=== PATIENT | male | born 1995 | race Caucasian/White ===

== ENCOUNTER 2023-03-07 14:26 | Emergency (ER) | payer SELFPAY ==
[2023-03-07 14:51] VITALS: BP 136/87; PULSE 79; TEMP 36.7; O2SAT 99; BMI 28.5
[2023-03-07 17:32] VITALS: BP 127/78; PULSE 57; TEMP 36.5; O2SAT 97
[2023-03-07 17:57] LABS: Basophils # 0.1 10^3/uL (0.0-0.1); Basophils % 0.6 %; Eosinophils # 0.4 10^3/uL (0.0-0.8); Eosinophils % 4.6 %; Hematocrit 42.9 % (42.0-52.0); Hemoglobin 14.8 g/dL (11.7-16.6); Lymphocytes # 2.7 10^3/uL (0.8-4.8); Lymphocytes % 29.7 %; Mean Corpuscular HGB Conc 34.5 g/dL (30.0-36.0); Mean Corpuscular Hemoglobin 30.7 pg (28.0-34.0); Mean Platelet Volume 10.3 fL (7.4-10.4); Neutrophils % 53.9 %; Nucleated Red Blood Cells % 0 %; Platelet Count 254 10^3/cmm (130-400); Red Blood Count 4.82 10^6/uL (4.1-5.3); Red Cell Distribution Width 11.8 % (12.1-15.1); White Blood Count 8.9 10^3/uL (4.0-10.0)
[2023-03-07 18:20] LABS: Anion Gap 15.8 (5-19); Blood Urea Nitrogen 14 mg/dL (6-20); Calcium 8.8 mg/dL (8.5-10.5); Carbon Dioxide 27 mmol/L (22-29); Chloride 99 mmol/L (98-107); Glomerular Filtration Rate 116.9 mL/min (90-130); Glucose 83 mg/dL (65-115); Osmolality Calculated 286 mOsm/kg (285-295); Potassium 3.8 mmol/L (3.5-5.1); Sodium 138 mmol/L (136-145)
--- NOTE | 2023-03-07 19:05 | W.ED.ANIMALB ---
HPI - Animal Bite General: Chief Complaint: Animal Bite Stated Complaint: spider bite on chest Time Seen by Provider: 03/07/23 19:03 History of Present Illness: 29-year-old male patient comes in today for concerns of spider bite to the chest wall. Patient reports being bit approximately 4 days ago by what he believes was a recluse spider. Since then patient had a erythematous rash develop over his body and lower legs. Patient started using Benadryl approximately 2 days ago with improvement of the rash starting today. Patient sought treatment due to the tenderness of the anterior chest wall where the spider bite was. Patient appears nontoxic. Patient is alert and oriented. Associated symptoms: Reports chills and fever(s); Deny headache(s) Review of Systems Const: Reports: fever(s), chills and body aches Eyes: Denies: change in vision ENMT: Denies: throat pain Card: Denies: chest pain Resp: Denies: dyspnea GI: Denies: nausea or vomiting : Denies: difficulty urinating Skin/Breast: Reports: erythema Neuro: Denies: headache(s) Physical Exam Const: COMMON NORMALS: alert HENMT: COMMON NORMALS: normocephalic HEAD & SCALP: normocephalic Neck/C-Spine: COMMON NORMALS: full ROM Chest: CHEST: Yes tenderness (Punctate lesion surrounded by erythema approximately 20 cm) Resp: COMMON NORMALS: normal respiratory effort Cardio: COMMON NORMALS: regular rate and regular rhythm RATE: regular rate RHYTHM: regular rhythm GI: COMMON NORMALS: non-tender Extremity: COMMON NORMALS: normal to inspection Neuro: SENSORIUM/ORIENTATION: Yes alert Skin: LESIONS: other (Punctate lesion to the left anterior chest surrounded by erythema) RASHES: rashes noted (Erythema to the abdomen and chest) Course Vital Signs: Vital signs: Vital Signs Temperature 97.7 F 03/07/23 17:32 Pulse Rate 57 L 03/07/23 17:32 Blood Pressure 127/78 03/07/23 17:32 Pulse Oximetry 97 03/07/23 17:32 Oxygen Delivery Me thod Room Air 03/07/23 17:32 MDM - Animal Bite Medical Decision Making Patient comes in for spider bite. On exam we note a punctate lesion to the left chest wall with approximately 20 cm of erythema around it. Patient also has an area of induration approximately 2 cm around the punctate lesion. No fluctuance is noted to the area. Patient also has a light red rash to the abdomen. No other rashes noted on the body. Differential diagnosis includes but not limited to folliculitis, cellulitis, local reaction to insect bite. Patient describes a recluse spider bite. I believe patient is having a reaction to the recluse spider bite. Laboratory values were unremarkable. Recommend mupirocin ointment and triamcinolone cream. Patient was also given some dexamethasone and a gram of Rocephin for secondary coverage. Reassured patient that most often these resolve without any significant abnormalities or sequela. Patient was recommended to follow-up with primary care in 3 to 4 days. Patient does not have a primary care provider we will go ahead and have case management assist with this follow-up appointment. Lab Data 03/07/23 17:20 03/07/23 17:20 Laboratory Results WBC 8.9 10^3/uL (4.0-10.0) 03/07/23 17:20 RBC 4.82 10^6/uL (4.1-5.3) 03/07/23 17:20 Hgb 14.8 g/dL (11.7-16.6) 03/07/23 17:20 Hct 42.9 % (42.0-52.0) 03/07/23 17:20 MCV 89.0 fl (80-94) 03/07/23 17:20 MCH 30.7 pg (28.0-34.0) 03/07/23 17:20 MCHC 34.5 g/dL (30.0-36.0) 03/07/23 17:20 RDW 11.8 % (12.1-15.1) L 03/07/23 17:20 Plt Count 254 10^3/cmm (130-400) 03/07/23 17:20 MPV 10.3 fL (7.4-10.4) 03/07/23 17:20 Neut % (Auto) 53.9 % 03/07/23 17:20 Lymph % (Auto) 29.7 % 03/07/23 17:20 [place] % (Auto) 11.0 % 03/07/23 17:20 Eos % (Auto) 4.6 % 03/07/23 17:20 Baso % (Auto) 0.6 % 03/07/23 17:20 Neut # (Auto) 4.80 10^3/uL (1.8-7.7) 03/07/23 17:20 Lymph # (Auto) 2.7 10^3/uL (0.8-4.8) 03/07/23 17:20 [place] # (Auto) 1.0 10^3/uL (0.2-0.9) H 03/07/23 17:20 Eos # (Auto) 0.4 10^3/uL (0.0-0.8) 03/07/23 17:20 Baso # (Auto) 0.1 10^3/uL (0.0-0.1) 03/07/23 17:20 Nucleated RBC % (auto) 0 % 03/07/23 17:20 Nucleated RBCs # 0.0 /100WBC 03/07/23 17:20 Sodium 138 mmol/L (136-145) 03/07/23 17:20 Potassium 3.8 mmol/L (3.5-5.1) 03/07/23 17:20 Chloride 99 mmol/L (98-107) 03/07/23 17:20 Carbon Dioxide 27 mmol/L (22-29) 03/07/23 17:20 Anion Gap 15.8 (5-19) 03/07/23 17:20 BUN 14 mg/dL (6-20) 03/07/23 17:20 Creatinine 0.8 mg/dL (0.7-1.2) 03/07/23 17:20 GFR Calculation 116.9 mL/min (90-130) 03/07/23 17:20 Glucose 83 mg/dL (65-115) 03/07/23 17:20 Calculated Osmolality 286 mOsm/kg (285-295) 03/07/23 17:20 Calcium 8.8 mg/dL (8.5-10.5) 03/07/23 17:20 Discharge Plan Discharge Patient Disposition: Home Clinical Impression: Brown recluse spider bite Qualifiers: Encounter type: initial encounter Injury intent: accidental or unintentional Qualified Code(s): T63.331A - Toxic effect of venom of brown recluse spider, accidental (unintentional), initial encounter Condition: Stable Prescriptions: New triamcinolone acetonide 0.1 % cream 1 applic topical BID Qty: 30 0RF Discharge Orders: Discharge ED (Routine); Ordered 03/07/23 Ordered By: Stepan Reyes Discharge Diet: Usual diet Discharge Activity: Increase activity as tolerated Patient Instructions: Brown Recluse Spider Bite (ED) Activity Restrictions/Additional Instructions: Use mupirocin ointment twice a day to insect by until healed. Use triamcinolone cream 2 times a day alternating with the mupirocin until wound is healed. Use acetaminophen ibuprofen for pain. Use Benadryl as needed for itching and rash. Follow-up with primary care in 3 to 5 days for recheck. Return to ED for new concerns or inability to follow-up. Coding Level of Care Code ED Supervisor Word Processing for Jake Funes
[2023-03-07] MEDS: cefTRIAXone 1,000 MG in water for injection-sterile 2.1 ML 1 MG IM (19:23)
[2023-03-07] MEDS: dexamethasone 10 mg/mL INJ IM (19:23)
[2023-03-07] MEDS: mupirocin oint 22 gm 1 APPLIC TOPICAL (19:25)
[2023-03-07] MEDS: triamcinolone 0.1% cream 15 gm 1 APPLIC TOPICAL (19:42)
--- NOTE | 2023-03-08 11:21 | DCPLANNER ---
manager of pharmacy had message to speak with patient about getting established with a primary care physician - corrections caseworker was unable to speak with patient at this time.
== END 2023-03-07 20:14 | disposition home or self-care (01) ==
PROVIDERS: Emergency Medicine; Emergency Provider Nurse Practitioner Family
DX: T63.331A Toxic effect of venom of brown recluse spider, accidental (unintentional), initial encounter (principal)
CPT/HCPCS: 36415; 80048; 85025; 96372; 99284; J0696; J1100

== ENCOUNTER 2023-10-05 22:03 | Emergency (ER) | payer OTHER, SELFPAY ==
[2023-10-05 22:25] VITALS: BP 141/72; PULSE 75; RESP 16; TEMP 36.7; O2SAT 96; BMI 26.9
--- NOTE | 2023-10-05 22:27 | ED_ITS ---
HPI - Skin/Abscess/Foreign Bdy General: Chief complaint: Skin/Abscess/Foreign Body Stated complaint: chemical burn on foot Time Seen by Provider: 10/05/23 22:09 History of Present Illness: 27-year-old male patient was exposed to some floor adhesive last night and since then has developed some blistering to his feet complaining of itching and discomfort. Tonight patient has widespread erythematous rash. Patient appears nontoxic. Patient appears in no pain. Patient reports itching and burning. Review of Systems General: Reports: 10 or more systems reviewed and unremarkable except in HPI and below Skin/Breast: Reports: rash, pruritus, erythema and new lesions Physical Exam Const: COMMON NORMALS: alert HENMT: COMMON NORMALS: normocephalic HEAD & SCALP: normocephalic Neck/C-Spine: COMMON NORMALS: full ROM Resp: COMMON NORMALS: normal respiratory effort and clear to auscultation bilaterally AUSCULTATION: clear to auscultation bilaterally Cardio: COMMON NORMALS: regular rate and regular rhythm RATE: regular rate RHYTHM: regular rhythm Back/Pelvis: COMMON NORMALS: thoracic and lumbar spine normal to inspection Extremity: NARRATIVE EXTREMITY EXAM: Erythematous rash to the forearms and lower extremities. Blistering noted to the dorsal right foot. Neuro: SENSORIUM/ORIENTATION: Yes alert Skin: RASHES: rashes noted (Erythematous) Course Vital Signs: Vital signs: Vital Signs Temperature 98.1 F 10/05/23 22:25 Pulse Rate 75 10/05/23 22:25 Respiratory Rate 16 10/05/23 22:25 Blood Pressure 141/72 10/05/23 22:25 Pulse Oximetry 96 10/05/23 22:25 Oxygen Delivery Me thod Room Air 10/05/23 22:25 MDM - Skin/Abscess/Foreign Bdy Medicial Decision Making Patient came in today for complaints of widespread erythematous rash and blistering to his dorsal right foot. Patient reports exposure to a maria isabel adhesive that spilled into his shoe last night. Patient reports that he had up similar incident a week or 2 ago to his right forearm. On exam we note erythematous rash. We also noted some blistering to the dorsal right foot. Vital signs are normal. Differential diagnosis includes allergic reaction, contact dermatitis, chemical burn. Reviewed adhesive with poison control who recommended Aquaphor for the skin irritation. I believe patient probably has had a secondary allergic reaction versus eczema response to the exposure to the chemical. Patient will be given steroids and antihistamine for his discomfort. Patient was recommended to follow-up as needed. Return to ED for new concerns. XR interpretation done by ED provider, pending radiology final review Discharge Plan Discharge Patient Disposition: Home Clinical Impression: Contact dermatitis due to adhesives Qualifiers: Contact dermatitis type: allergic Qualified Code(s): L23.1 - Allergic contact dermatitis due to adhesives Condition: Stable Prescriptions: New triamcinolone acetonide 0.1 % cream 1 applic topical TID Qty: 80 1RF hydroxyzine HCl 25 mg tablet 25 mg PO Q6H PRN (Reason: itching and rash) Qty: 40 0RF No Action triamcinolone acetonide 0.1 % cream 1 applic topical BID Qty: 30 0RF Discharge Orders: Discharge ED (Routine); Ordered 10/05/23 Ordered By: Stepan Reyes Discharge Diet: Usual diet Discharge Activity: Increase activity as tolerated Patient Instructions: Contact Dermatitis (ED) Activity Restrictions/Additional Instructions: Home and rest. Drink plenty of water. Use triamcinolone cream 3 times a day to rash until clear. Use hydroxyzine 25 mg 1 every 6 hours as needed for itching and rash. Hydroxyzine may make you sleepy. Follow-up with primary care. Return to ER for new concerns. Stand Alone Forms: Work/School Release Coding Level of Care Code ED Bilingual Inside Sales Representative for Jake Funes
[2023-10-05] MEDS: dexamethasone 10 mg/mL INJ IM (22:36)
[2023-10-05] MEDS: hyDROXYzine 25 mg Capsule 50 MG PO (22:38)
[2023-10-05 23:04] LABS: Amphetamines Screen Urine Negative (Negative); Barbiturates Screen Urine Negative (Negative); Benzodiazepines Screen Urine Negative (Negative); Cocaine Screen Urine Negative (Negative); Opiate Screen Urine Negative (Negative); PCP Screen Urine Negative (Negative); THC Screen Urine Positive (Negative)
== END 2023-10-05 23:17 | disposition home or self-care (01) ==
PROVIDERS: Emergency Provider Nurse Practitioner Family
DX: L23.1 Allergic contact dermatitis due to adhesives (principal)
CPT/HCPCS: 80306; 96372; 99284; J1100

== ENCOUNTER 2024-02-02 16:08 | Inpatient (IN) | payer SELFPAY ==
[2024-02-02 16:13] VITALS: BP 146/101; PULSE 79; RESP 18; TEMP 37; O2SAT 98; BMI 26.4
--- NOTE | 2024-02-02 16:22 | ED.C_ITS ---
HPI - Psych General: Chief Complaint: Psychiatric Symptoms Stated Complaint: SI Time Seen by Provider: 02/02/24 16:16 Source: patient and police Limitations: no limitations History of Present Illness: 28-year-old male presents here with suic idal ideations he had called police today and told them that he wants to he is asking them to shoot him. He tells me that he is just been extremely depressed today and does not want to live no longer. He is not on any meds currently. Denies any worse improving factors Associated symptoms: Reports depression and suicidal ideation Review of Systems Const: Denies: fever(s), chills, body aches or change in appetite ENMT: Denies: throat pain or dental pain Card: Denies: chest pain Resp: Denies: dyspnea GI: Denies: abdominal pain, nausea, vomiting or diarrhea Musc: Denies: neck pain or back pain Skin/Breast: Denies: rash Neuro: Denies: headache(s) Psych: Reports: depression and suicidal ideation Physical Exam Const: COMMON NORMALS: no acute distress, patient oriented x3 and healthy appearing HENMT: COMMON NORMALS: normocephalic and atraumatic HEAD & SCALP: normocephalic and atraumatic Neck/C-Spine: COMMON NORMALS: full ROM and supple Chest: COMMONS NORMALS: normal inspection of the chest Resp: COMMON NORMALS: normal respiratory effort Cardio: COMMON NORMALS: regular rate RATE: regular rate Extremity: COMMON NORMALS: normal to inspection and full ROM Neuro: COMMON NORMALS: patient oriented x3, moves all extremities and no focal motor deficits Psych: COMMON NORMALS: mental status grossly normal, Normal thought process present and cooperative MOOD & AFFECT: Yes depressed mood THOUGHT PROCESS: Normal thought process present THOUGHT CONTENT: Yes Suicidality present Skin: COMMON NORMALS: no rashes or lesions noted and no wounds GENERAL SKIN EXAM: no rashes or lesions noted Course Vital Signs: Vital signs: Vital Signs Temperature 98.6 F 02/02/24 16:13 Pulse Rate 79 02/02/24 16:44 Respiratory Rate 18 02/02/24 16:44 Blood Pressure 146/101 02/02/24 16:44 Pulse Oximetry 98 02/02/24 16:44 Oxygen Delivery Me thod Room Air 02/02/24 16:44 MDM - Psych Medical Decision Making Patient presents here with suicidal ideations he is medically cleared will admit at this time under a 96-hour hold Medical Records I reviewed the patient's medical records. Lab Data I reviewed the patient's lab results. No radiology studies performed this visit Discharge Plan Discharge Patient Disposition: Admitted As Inpatient Clinical Impression: Suicidal ideation Condition: Stable Prescriptions: No Action triamcinolone acetonide 0.1 % cream 1 applic topical BID Qty: 30 0RF triamcinolone acetonide 0.1 % cream 1 applic topical TID Qty: 80 1RF hydroxyzine HCl 25 mg tablet 25 mg PO Q6H PRN (Reason: itching and rash) Qty: 40 0RF Coding Level of Care Code ED Patient Portal Representative for Jake Funes
[2024-02-02 16:44] VITALS: BP 146/101; PULSE 79; RESP 18; O2SAT 98
--- NOTE | 2024-02-02 16:52 | PC.NURSE ---
PT MOTHER, YIMI, CALLED TO FIND OUT ABOUT PT AND IF HE WAS HERE. THIS NURSE ASKED PT IF IT WAS OKAY TO GIVE INFO OUT TO HER AND HE SAID YES AND TELL HER I LOVE HER AND THAT I AM OKAY. VERBALIZED STATEMENT TO YIMI.
--- NOTE | 2024-02-02 17:07 | PC.NURSE ---
96 hr rights reviewed with patient @1640 with assistance of [facility] alarm security or surveillance monitor Graham. All education reviewed. No verbalized questions or concerns at this time. Patient copy left with patient.
[2024-02-02 17:19] LABS: Amphetamines Screen Urine Negative (Negative); Barbiturates Screen Urine Negative (Negative); Benzodiazepines Screen Urine Negative (Negative); Cocaine Screen Urine Negative (Negative); Opiate Screen Urine Negative (Negative); PCP Screen Urine Negative (Negative); THC Screen Urine Positive (Negative)
[2024-02-02 17:40] LABS: Basophils % 0.4 %; Eosinophils # 0.1 10^3/uL (0.0-0.8); Eosinophils % 0.6 %; Hematocrit 47.3 % (37-53); Lymphocytes # 2.5 10^3/uL (0.8-4.8); Lymphocytes % 23.2 %; Mean Corpuscular HGB Conc 34.2 g/dL (30-55); Mean Corpuscular Hemoglobin 30.4 pg (27-33); Mean Corpuscular Volume 88.7 fl (82-101); Mean Platelet Volume 10.4 fL (7.4-10.4); Monocytes # 0.9 10^3/uL (0.2-0.9); Monocytes % 8.5 %; Neutrophils # 7.15 10^3/uL (1.8-7.7); Nucleated Red Blood Cells % 0 %; Platelet Count 306 10^3/cmm (157-399); Red Blood Count 5.33 10^6/uL (3.85-5.65); Red Cell Distribution Width 12.3 % (12.1-15.1); White Blood Count 10.65 10^3/uL (3.29-11.43)
[2024-02-02 18:15] LABS: Alanine Aminotransferase 105 U/L (0-41); Albumin Level 5.4 g/dL (3.5-5.2); Alkaline Phosphatase 86 U/L (40-130); Anion Gap 20.2 (5-19); Aspartate Amino Transferase 56 U/L (0-40); Blood Urea Nitrogen 18 mg/dL (6-20); Calcium 10.7 mg/dL (8.5-10.5); Carbon Dioxide 25 mmol/L (22-29); Chloride 101 mmol/L (98-107); Creatinine Clr Calc Pharmacy 183.7156; Globulin 3.5 g/dL (1.3-4.6); Glomerular Filtration Rate 135.3 mL/min (90-130); Glucose 108 mg/dL (65-115); Osmolality Calculated 296 mOsm/kg (285-295); Potassium 4.2 mmol/L (3.5-5.1); Sodium 142 mmol/L (136-145); Total Bilirubin 0.5 mg/dL (0.15-1.2); Total Protein 8.9 g/dL (6.6-8.7)
[2024-02-02 18:26] LABS: Acetaminophen < 5.0 ug/mL (10-30); Alcohol Level < 10 mg/dL (0-10); Salicylate < 0.3 mg/dL (3-10)
[2024-02-02 19:28] VITALS: BP 146/79; PULSE 75; O2SAT 96
[2024-02-02 19:31] VITALS: PULSE 78
[2024-02-02 20:10] VITALS: BP 125/98; PULSE 98; RESP 18; TEMP 36.9; O2SAT 98
[2024-02-03 06:00] VITALS: BP 131/81; PULSE 58; RESP 16; TEMP 36.4; O2SAT 98
--- NOTE | 2024-02-03 08:38 | PC.NURSE ---
Patient denies anxiety, depression, SI, HI, AVH during morning assessment. Patient enjoyed talking to this nurse about his children. Denies any needs at this time.
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
[2024-02-03 14:00] VITALS: BP 132/84; PULSE 86; RESP 20; TEMP 36.3; O2SAT 99
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
[2024-02-03 17:41] VITALS: BP 132/84; PULSE 86; RESP 20; TEMP 36.3; O2SAT 99
== END 2024-02-03 18:15 | disposition home or self-care (01) | DRG 881 ==
LOC: ER 16:52 → NP 18:36
PROVIDERS: Admitting Provider Psychiatry & Neurology Psychiatry; Emergency Provider Emergency Medicine; Visit Provider Psychiatry & Neurology Psychiatry
DX: F43.21 Adjustment disorder with depressed mood (principal); R45.851 Suicidal ideations; Z62.810 Personal history of physical and sexual abuse in childhood
CPT/HCPCS: 36415; 80053; 80306; 80307; 85025; 97150; 97165; 99285